=== PATIENT | female | born 1995 | race African-American/Black ===

== ENCOUNTER 2018-10-07 17:22 | Emergency (ER) | payer OTHER ==
[2018-10-07 17:57] VITALS: BP 113/73
--- NOTE | 2018-10-07 18:14 | UC ---
UC General HPI - HPI Summary HPI Summary: bumpy rash on L hand and L foot for about 3 days that itches. denies exposures, current/recent illness. no fever or joint pain. - History of Current Complaint Chief Complaint: UCRash Stated Complaint: SKIN COMPLAINT Time Seen by Provider: 10/07/18 18:02 Hx Obtained From: Patient Hx Last Menstrual Period: end of August Pain Intensity: 0 - Allergy/Home Medications Allergies/Adverse Reactions: Allergies Allergy/AdvReac Type Severity Reaction Status Date / Time diphenhydramine Allergy vision Verified 10/07/18 17:49 [From Benadryl] changes, disorientation Home Medications: Home Medications Oc 1 tab PO QPM 10/07/18 [History Confirmed 10/07/18] diphenhydrAMINE HCl [Benadryl Allergy] 25 mg PO ONCE PRN 10/07/18 [History Confirmed 10/07/18] PMH/Surg Hx/FS Hx/Imm Hx Previously Healthy: Yes - Surgical History Surgical History: Yes Surgery Procedure, Year, and Place: wisdom teeth - Family History Known Family History: Positive: Non-Contributory - Social History Alcohol Use: Occasionally Substance Use Type: Marijuana Substance Use Comment - Amount & Last Used: 09/21/18 Smoking Status (MU): Never Smoked Tobacco Review of Systems All Other Systems Reviewed And Are Negative: No Constitutional: Negative: Fever, Chills Skin: Positive: Rash Musculoskeletal: Negative: Arthralgia, Decreased ROM Physical Exam Triage Information Reviewed: Yes Appearance: Well-Appearing Vital Signs: Initial Vital Signs Temp 98.4 F 10/07/18 17:50 Pulse 73 10/07/18 17:50 Resp 18 10/07/18 17:50 BP 113/73 10/07/18 17:50 Pulse Ox 100 10/07/18 17:50 Vital Signs Reviewed: Yes Eyes: Positive: Conjunctiva Clear ENT: Positive: Normal ENT inspection Neck: Positive: Supple Respiratory: Positive: No respiratory distress Cardiovascular: Positive: RRR Musculoskeletal: Positive: ROM Intact, No Edema Neurological: Positive: Alert Psychological: Positive: Age Appropriate Behavior Skin Exam: Normal Skin: Positive: Rashes - small vesicular rash L palm, sides of fingers and dorsal L foot. No burrows, erythema or scale. Course/Dx - Differential Dx - Multi-Symptom Differential Diagnoses: Other - no concern for fungal or bacterial infection and no concern for scabies. - Diagnoses Provider Diagnosis: Dyshidrotic dermatitis Discharge - Sign-Out/Discharge Documenting (check all that apply): Patient Departure All imaging exams completed and their final reports reviewed: No Studies - Discharge Plan Condition: Stable Disposition: HOME Prescriptions: Triamcinolone 0.1% CREAM (NF) [Kenalog 0.1% Cream (NF)] 1 applic .SEE ORDER BID 5 Days #1 tube Patient Education Materials: Dermatitis (ED) Referrals: Vicki Holly [Medical Doctor] - 7 Days - Billing Disposition and Condition Condition: STABLE Disposition: Home
== END 2018-10-07 18:19 | disposition home or self-care (01) ==
LOC: UCCORT 17:22
DX: L30.1 Dyshidrosis [pompholyx] (principal)
CPT/HCPCS: 99202; G0463